=== PATIENT | male | born 1975 | race Caucasian/White ===

== ENCOUNTER → 2021-02-28 | Outpatient (CLI) | payer BC, MEDICAID ==
[~2021-02-28] MED LIST: CASIRIVIMAB (REGN10933) (EUA) 600 MG, IMDEVIMAB (REGN10987) (EUA) 600 MG in SODIUM CHLO... IVPB ONE; SODIUM CHLORIDE 0.9% 50 ML IVPB ONE; SODIUM CHLORIDE 0.9% 500 ML 500 ML in EMPTY BAG 1 BAG IV PRN
[2021-02-28 10:47] VITALS: RESP 16; TEMP 97.4
[2021-02-28 11:37] VITALS: BP 136/89; PULSE 55
== END ==
LOC: PROCWHC3 09:52
PROVIDERS: ATTEND Family Medicine
DX: U07.1 COVID-19 (principal); E66.9 Obesity, unspecified; F17.200 Nicotine dependence, unspecified, uncomplicated; Z68.39 Body mass index [BMI] 39.0-39.9, adult
CPT/HCPCS: 96360; Q0244; M0243

== ENCOUNTER → 2022-12-31 | Outpatient (CLI) | payer OTHER ==
--- NOTE | 2022-12-31 09:56 | US ---
EXAMINATION TYPE: US liver DATE OF EXAM: 12/31/2022 COMPARISON: NONE CLINICAL INDICATION: Male, 47 years old with history of R74.8 ABNORMAL LEVELS OF OTHER SERUM ENZYMES; Abnormal LFT's TECHNIQUE: Multiple sonographic images of the right upper quadrant are obtained. FINDINGS: EXAM MEASUREMENTS: Liver Length: 20.8 cm Gallbladder Wall: 0.2 cm CBD: 0.4 cm Right Kidney: 12.7 x 6.9 x 6.4 cm [employer]TING [employer] NOTES: Large pt body habitus Pancreas: wnl, tail obscured by overlying bowel gas Liver: Enlarged, heterogeneous, difficult to penetrate Gallbladder: wnl Evidence for sonographic Jorge's sign: No CBD: wnl Right Kidney: wnl IMPRESSION: 1. Hepatomegaly. 2. Hepatic steatosis.
== END | disposition home or self-care (01) ==
LOC: RADUSWWP 09:26
PROVIDERS: ATTEND Family Medicine
DX: K76.0 Fatty (change of) liver, not elsewhere classified (principal); R16.0 Hepatomegaly, not elsewhere classified; R74.8 Abnormal levels of other serum enzymes
CPT/HCPCS: 76705

== ENCOUNTER 2024-08-07 07:17 | Day surgery (SDC) | payer MEDICAID, OTHER ==
[2024-08-06 11:07] VITALS: BMI 40.0
[2024-08-07 07:46] VITALS: TEMP 97.8
[2024-08-07] MEDS: IV FLUID CONTINUATION 1,000 ML IV ONE ×2 (07:46→09:10)
[2024-08-07 07:56] LABS: Glucose,Whole Blood 101 mg/dL (70-110)
[2024-08-07] MEDS: LACTATED RINGERS 1,000 ML IV SCH (07:57)
[2024-08-07] MEDS ORDERED: PROPOFOL 10 MG/ML 20 ML VIAL IV ONE (08:43)
[2024-08-07] MEDS ORDERED: LIDOCAINE 1% INJ 10MG/ML (20 ML MDV) ONE (08:43)
--- NOTE | 2024-08-07 09:11 | P.PCN ---
Date of Procedure: 08/07/24 Procedure(s) Performed: Brief history: Patient is a pleasant 48-year-old white male scheduled for an elective upper endoscopy as well as colonoscopy as a part of evaluation of GERD and screening for colon cancer Procedure performed: Esophagogastroduodenoscopy with biopsy Colonoscopy with snare polypectomy Preoperative diagnosis: GERD Screening for colon cancer Anesthesia: [facility] [place] Procedure: After informed consent was obtained from the patient was brought into the endoscopy unit and IV sedation was administered by anesthesia under continuous monitoring. Initially upper endoscopy was done. The Olympus GF 160 video endoscope was inserted inserted into the mouth and esophagus intubated without any difficulty and was gradually advanced into the stomach and duodenum and carefully examined. The bulb and second part of the duodenum appeared normal. The scope was then withdrawn into the stomach adequately insufflated with air and upon careful examination the antrum had mild antral gastritis and biopsies were done from this area. Mucosa body, cardia and fundus appeared normal. The scope was then withdrawn into the esophagus. Small hiatal hernia noted. The GE junction was located at 40 cm to the incisors. It appeared irregular and there was 1 tongue of Harmon's appearing mucosa extending 3 mm proximal to the GE junction that was biopsied.. Rest of the esophagus appeared normal. Patient tolerated the procedure well. At this time the patient continued to remain sedation. Initial digital rectal examination was normal. Olympus CF 160 video colonoscope was then inserted into the rectum and gradually advanced to the cecum without any difficulty. Careful examination was performed as the scope was gradually being withdrawn. The prep was excellent. The cecum, ascending colon, appeared normal. The transverse colon there was a 5 mm polyp that was removed by cold snare polypectomy. In the descending colon there was a 6 mm sessile polyp removed by cold snare polypectomy. In the sigmoid colon there were 3 polyps measuring about 5 mm in size removed by cold snare polypectomy. In the rectum there was a 5 mm polyp that was removed by cold snare polypectomy. Rest of the sigmoid colon and rectum appeared normal. Retroflexion was performed in the rectum and no lesions were noted. Patient tolerated the procedure well. Impression: 1. Upper endoscopy revealed antral gastritis, small hiatal hernia and short segment Harmon's esophagus 2. Colonoscopy revealed: 5 mm transverse colon polyp status post cold snare polypectomy 6 mm descending colon polyp status post cold snare polypectomy 5 mm x 3 sigmoid colon polyp status post polypectomy 3 mm rectal polyp status post cold snare polypectomy Recommendations: Findings of this examination were discussed with the patient as well as his family. He was advised to follow-up with the biopsy results. If the biopsy of the Harmon's esophagus confirms it, recommend repeat upper endoscopy in 3 years. Centimeter. Continue with omeprazole 20 mg daily and follow antireflux measures. Recommend repeat colonoscopy in 3 years based on the biopsy results.
[2024-08-07 09:29] VITALS: RESP 18
[2024-08-07 09:31] VITALS: BP 136/68; PULSE 65
== END 2024-08-07 10:09 | disposition home or self-care (01) ==
LOC: ORWHC2ENDO 07:17
PROVIDERS: ATTEND Internal Medicine Gastroenterology
DX: Z12.11 Encounter for screening for malignant neoplasm of colon (principal); D12.3 Benign neoplasm of transverse colon; D12.4 Benign neoplasm of descending colon; D12.5 Benign neoplasm of sigmoid colon; K29.50 Unspecified chronic gastritis without bleeding; K21.9 Gastro-esophageal reflux disease without esophagitis; K22.70 Barrett's esophagus without dysplasia; K44.9 Diaphragmatic hernia without obstruction or gangrene; K62.1 Rectal polyp; I10 Essential (primary) hypertension; E78.5 Hyperlipidemia, unspecified; G47.33 Obstructive sleep apnea (adult) (pediatric); E11.9 Type 2 diabetes mellitus without complications; F41.9 Anxiety disorder, unspecified; F32.A Depression, unspecified; E66.01 Morbid (severe) obesity due to excess calories; Z86.0100 Personal history of colon polyps, unspecified; Z79.84 Long term (current) use of oral hypoglycemic drugs; Z79.899 Other long term (current) drug therapy; Z98.890 Other specified postprocedural states
CPT/HCPCS: 88305; 45385; 43239; J2003; J2704